=== PATIENT | female | born 1985 | race Caucasian/White ===

== ENCOUNTER → 2017-07-23 | Outpatient (CLI) | payer MEDICAID, SELFPAY | LOC: M RAD 14:26 | DX: Z36.2 Encounter for other antenatal screening follow-up (principal) | CPT/HCPCS: 76820 ==

== ENCOUNTER → 2017-08-04 | Outpatient (REF) | payer MEDICAID, SELFPAY | LOC: M LAB REF 17:06 | DX: Z34.83 Encounter for supervision of other normal pregnancy, third trimester (principal) | CPT/HCPCS: 87081 ==

== ENCOUNTER 2017-08-08 11:48 | Outpatient (CLI) | payer SELFPAY | END 2017-08-08 12:51 | disposition home or self-care (01) | LOC: M LDO 11:48 | DX: O47.03 False labor before 37 completed weeks of gestation, third trimester (principal); Z3A.37 37 weeks gestation of pregnancy | CPT/HCPCS: 59025 ==

== ENCOUNTER 2017-08-31 14:54 | Inpatient (IN) | payer MEDICAID, SELFPAY ==
[2017-08-31] MEDS: LACTATED RINGER'S 1000 ML IV (17:22)
[2017-08-31] MEDS: LR 1,000 ML IV (18:10)
[2017-08-31 18:17] LABS: HEMATOCRIT 32.4 % (36.0-47.0); HEMOGLOBIN 10.9 g/dl (12.0-16.0); MEAN CORPUSCULAR HEMOGLOBIN 27.1 pg (27.0-33.0); MEAN CORPUSCULAR HGB CONC 33.6 g/dl (32.0-36.5); MEAN CORPUSCULAR VOLUME 80.6 fl (80.0-96.0); PLATELET COUNT, AUTOMATED 284 10^3/uL (150-450); RED BLOOD COUNT 4.02 10^6/uL (4.00-5.40); RED CELL DISTRIBUTION WIDTH 13.3 % (11.5-14.5); WHITE BLOOD COUNT 19.1 10^3/uL (4.0-10.0)
[2017-08-31] MEDS: miSOPROStol 50 MCG 1/2 TAB (S0191) SL (18:30)
[2017-08-31 21:02] LABS: HBSAG L&D NEGATIVE (NEGATIVE)
[2017-09-01] MEDS: miSOPROStol 50 MCG 1/2 TAB (S0191) PV (00:50)
[2017-09-01] MEDS: LR 1,000 ML IV ×3 (01:22→11:36)
[2017-09-01] MEDS ORDERED: FENTANYL 2MCG/ML ROPIVACAINE 0.2% IN 0.9% NACL 200ML IVBAG As Ordered (02:50)
[2017-09-01] MEDS ORDERED: EPIDURAL COMMENT XX (03:25)
[2017-09-01] MEDS ORDERED: NALOXONE INJ 0.4 MG/1 ML VIAL (J2310) IV (03:25)
[2017-09-01] MEDS ORDERED: EPIDURAL/PCA KEYS XX (03:25)
[2017-09-01] MEDS: FENTANYL/ROPIVACAINE/NACL BAG 200 ML EPIDURAL (03:25)
[2017-09-01] MEDS ORDERED: REFRIGERATOR IV KEYS XX (03:25)
[2017-09-01] MEDS ORDERED: diphenhydrAMINE INJ 50MG/ML VIAL (J1200) IV (03:25)
[2017-09-01] MEDS ORDERED: ONDANSETRON 4MG/2ML VIAL (J2405) As Ordered (03:40)
[2017-09-01] MEDS ORDERED: ePHEDrine SULFATE 25 MG/5 ML(5MG/ML) SYRINGE As Ordered (03:41)
[2017-09-01] MEDS ORDERED: OXYTOCIN 30 UNITS IN 0.9% NaCl 500ML IV BAG (J2590) As Ordered (07:04)
[2017-09-01] MEDS: ePHEDrine SULFATE 25 MG/5 ML(5MG/ML) SYRINGE IV ×2 (07:23→11:36)
[2017-09-01] MEDS: ONDANSETRON 4MG/2ML VIAL (J2405) IV ×2 (07:23→13:17)
[2017-09-01] MEDS: OXYTOCIN DRIP 30 UNITS in APPROPRIATE DILUENT 1 EA IV (13:03)
[2017-09-01 19:44] LABS: CORD GAS HCO3 V 18.4 MEQ/L; CORD GAS O2 SAT V 92.5 %; CORD GAS PCO2 V 33.9 mmHg; CORD GAS PH V 7.352 UNITS; CORD GAS PO2 V 49.9 mmHg; CORD GAS SBC V 19.5 MEQ/L; CORD GAS TCO2 V 19.4 MEQ/L
[2017-09-01] MEDS: miSOPROStol 200 MCG TAB (S0191) PR (20:15)
[2017-09-01] MEDS ORDERED: ANUSOL HC CREAM 30GM TOP (20:15)
[2017-09-01] MEDS ORDERED: RHOGAM 300 MCG (1500 IU) INJ (J2790) IM (20:15)
[2017-09-01] MEDS ORDERED: MEASLES,MUMPS,RUBELLA VACCINE INJ (MMR-II) (90707) SC (20:15)
[2017-09-01] MEDS ORDERED: MOM 30ML SUSPENSION UDC PO (20:15)
[2017-09-01] MEDS: METHYLERGONOVINE MALEATE 0.2 MG/ML VIAL (J2210) IM (20:30)
[2017-09-01] MEDS: IBUPROFEN 800 MG TAB PO (22:00)
[2017-09-01] MEDS: FERROUS SULFATE 325MG TAB PO (22:38)
[2017-09-01] MEDS: ACETAMINOPHEN 500 MG TAB PO (22:39)
[2017-09-02] MEDS: METHYLERGONOVINE MALEATE 0.2 MG TAB PO ×4 (00:21→17:44)
[2017-09-02] MEDS: IBUPROFEN 800 MG TAB PO (05:34)
[2017-09-02] MEDS: ACETAMINOPHEN 500 MG TAB PO (05:36)
[2017-09-02 07:28] LABS: HEMATOCRIT 21.4 % (36.0-47.0); MEAN CORPUSCULAR HEMOGLOBIN 26.8 pg (27.0-33.0); MEAN CORPUSCULAR HGB CONC 32.7 g/dl (32.0-36.5); PLATELET COUNT, AUTOMATED 212 10^3/uL (150-450); RED BLOOD COUNT 2.61 10^6/uL (4.00-5.40); RED CELL DISTRIBUTION WIDTH 13.4 % (11.5-14.5); WHITE BLOOD COUNT 21.2 10^3/uL (4.0-10.0)
[2017-09-02] MEDS: PERCOCET 5MG/325MG TAB PO ×3 (07:33→19:43)
[2017-09-02] MEDS: FERROUS SULFATE 325MG TAB PO ×2 (07:33→21:14)
[2017-09-02] MEDS ORDERED: PRENATAL VITAMINS CHEWABLE TABLET PO (09:00)
[2017-09-02] MEDS: PRENATAL VITAMINS CHEWABLE TABLET PO ×2 (11:30→12:00)
[2017-09-02] MEDS ORDERED: miSOPROStol 200 MCG TAB (S0191) As Ordered (12:00)
[2017-09-02] MEDS: DOCUSATE SODIUM 100 MG CAP PO (21:14)
[2017-09-03] MEDS ORDERED: METHYLERGONOVINE MALEATE 0.2 MG TAB PO
[2017-09-03] MEDS: PERCOCET 5MG/325MG TAB PO ×2 (01:55→07:59)
[2017-09-03] MEDS: DIBUCAINE 1% OINTMENT 30GM TOP (07:56)
[2017-09-03] MEDS: IBUPROFEN 800 MG TAB PO (07:58)
[2017-09-03] MEDS: FERROUS SULFATE 325MG TAB PO (07:59)
[2017-09-03] MEDS ORDERED: METHYLERGONOVINE MALEATE 0.2 MG/ML VIAL (J2210) IM (08:15)
== END 2017-09-03 10:28 | disposition home or self-care (01) | DRG 560 ==
LOC: M LDO 14:54 → M OBS 09-01 22:03 → M LDI 15:08
PROVIDERS: Obstetrics & Gynecology
PROC: 3E0DXGC Introduction of Other Therapeutic Substance into Mouth and Pharynx, External Approach (ICD-10-PCS; 2017-08-31)
PROC: 10E0XZZ Delivery of Products of Conception, External Approach (ICD-10-PCS; principal; 2017-09-01)
PROC: 10907ZC Drainage of Amniotic Fluid, Therapeutic from Products of Conception, Via Natural or Artificial Opening (ICD-10-PCS; 2017-09-01)
PROC: 0W8NXZZ Division of Female Perineum, External Approach (ICD-10-PCS; 2017-09-01)
PROC: 0WQNXZZ Repair Female Perineum, External Approach (ICD-10-PCS; 2017-09-01)
DX: O48.0 Post-term pregnancy (principal); O69.82X0 Labor and delivery complicated by other cord entanglement, without compression, not applicable or unspecified; Z37.0 Single live birth; Z3A.40 40 weeks gestation of pregnancy; O43.123 Velamentous insertion of umbilical cord, third trimester

== ENCOUNTER → 2019-08-26 | Outpatient (CLI) | payer MEDICAID, OTHER ==
[~2019-08-26] MED LIST: FERR325T3 PO; IBUP-1114 PO; MAPA500T2 PO; OXYC1TAB23 PO; PRENTAB9 PO; TUMS500C PO
[2019-08-26 12:12] LABS: BASO % 0.2 % (0.0-1.0); EOS # 0.1 10^3/uL (0.0-0.5); EOS % 1.1 % (0.0-3.0); HEMATOCRIT 34.1 % (36.0-47.0); HEMOGLOBIN 11.3 g/dl (12.0-15.5); LYMPH # 1.4 10^3/uL (1.5-5.0); LYMPH % 12.7 % (24.0-44.0); MEAN CORPUSCULAR HEMOGLOBIN 28.7 pg (27.0-33.0); MEAN CORPUSCULAR HGB CONC 33.1 g/dl (32.0-36.5); MEAN CORPUSCULAR VOLUME 86.5 fl (80.0-96.0); MONO # 0.4 10^3/uL (0.0-0.8); MONO % 3.9 % (0.0-5.0); NEUTROPHILS % 81.1 % (36.0-66.0); PLATELET COUNT, AUTOMATED 249 10^3/uL (150-450); RED BLOOD COUNT 3.94 10^6/uL (4.00-5.40); WHITE BLOOD COUNT 11.1 10^3/uL (4.0-10.0)
[2019-08-26 12:23] LABS: GLUCOSE CHALLENGE TEST 1 HOUR 114 MG/DL (LESS THAN 140); THYROID STIMULATING HORMONE 0.964 uIU/ML (0.358-3.740)
[2019-08-26 13:32] LABS: HEMOGLOBIN A1c 5.6 %
[2019-08-26 14:12] LABS: CHLAMYDIA DNA AMPLIFICATION NEGATIVE (NEGATIVE); GC DNA AMPLIFICATION NEGATIVE (NEGATIVE)
[2019-08-27 11:34] LABS: RUBELLA IgG QUALITATIVE IMMUNE (IMMUNE)
[2019-08-27 12:02] LABS: HEPATITIS C VIRUS ABY INDEX < 0.0 INDEX (<0.8)
[2019-08-27 12:03] LABS: HIV 1&2 SCREEN CENTAUR NEGATIVE (NEGATIVE)
== END ==
LOC: M PLALAB 08:18
PROVIDERS: ATTEND Advanced Practice Midwife
DX: O30.049 Twin pregnancy, dichorionic/diamniotic, unspecified trimester (principal); Z3A.00 Weeks of gestation of pregnancy not specified

== ENCOUNTER → 2019-09-21 | Outpatient (CLI) | payer OTHER ==
--- NOTE | 2019-09-21 12:30 | REP ---
OBSTETRIC SONOGRAPHY: MULTIPLE GESTATION. HISTORY: Twin . Dichorionic diamniotic, second trimester study. Findings: There is a thin membrane between the two fetuses. Dichorionic diamniotic twin gestation. A placenta is seen posteriorly with complete placenta previa. With fetus B gestational sac there appears to be placental tissue anteriorly and posteriorly. Bilobed placenta versus placenta with succenturiate lobe. Closed cervical length is measured transvaginally at 4.3 cm. Twin A is transverse in lie with head to the maternal left. Twin B is transverse in lie head to the maternal right. Amniotic fluid is subjectively normal around both twins. No extrauterine abnormalities observed. In fetus A there is no evidence of abnormality. facial profile is observed but nose and lips as well as right ventricular cardiac outflow tract view and abdominal wall cord insertion are less than optimally seen due to position. The following additional anatomic structures are identified in fetus A and are felt to be unremarkable: cranium, choroid plexus, cavum, cerebellum and posterior fossa, four-chamber heart with left ventricular outflow tract view, diaphragm, left-sided stomach, three-vessel cord, kidneys and bladder, spine, upper and lower extremities. Biometry chart fetus A: BPD 4.4 cm = 19 weeks 3 days Head circumference 15.1 cm = 18 weeks 4 days Abdominal circumference 13.4 cm = 18 weeks 6 days Femur length 2.8 cm = 18 weeks 3 days Humeral length 2.7 cm = 18 weeks 6 days Cerebellar diameter 1.7 cm = 17 weeks 3 days HC/AC ratio normal 1.18. Cephalic index normal 0.80. Estimated weight 252 grams, 0 pounds 8 ounces, 47th percentile for 18 weeks 5 days. In fetus B, there is no abnormality. The following anatomic structures are less than optimally seen due to position: Nose and lips, left and right ventricular cardiac outflow tract views, cord insertion, kidneys. The following anatomic structures are identified in fetus B and are felt to be unremarkable: cranium, choroid plexus, cavum, cerebellum and posterior fossa, four-chamber heart, diaphragm, left-sided stomach, three-vessel cord, urinary bladder, spine, upper and lower extremities. Biometry chart fetus B: BPD 4.2 cm = 18 weeks 6 days Head circumference 15.1 cm = 18 weeks 1 day Abdominal circumference 13.0 cm = 18 weeks 4 days Femur length 2.8 cm = 18 weeks 4 days Humeral length 2.8 cm = 18 weeks 6 days Cerebellar diameter 1.7 cm = 17 weeks 3 days HC/AC ratio normal 1.16. Cephalic index normal 0.80. Estimated weight 245 grams, 0 pounds 8 ounces, 42nd percentile for 18 weeks 5 days. IMPRESSION: Viable twin intrauterine gestation at 18 weeks 5 days by today's composite criteria. TYLOR by today's sonography February 17, 2020. There is evidence of complete placenta previa on transabdominal and transvaginal images.
== END ==
LOC: M WHC 08:50
PROVIDERS: ATTEND Advanced Practice Midwife
DX: O30.042 Twin pregnancy, dichorionic/diamniotic, second trimester (principal); Z3A.18 18 weeks gestation of pregnancy

== ENCOUNTER → 2019-10-22 | Outpatient (CLI) | payer OTHER ==
--- NOTE | 2019-10-23 09:58 | REP ---
Obstetric sonography: Multiple gestation. History: Follow-up anatomy. Known twins. Comparison study: September 21, 2019. Findings: Scanning through the gravid uterus demonstrates a diamniotic dichorionic twin gestation. Placenta for fetus A is posterior low-lying grade 1 at the inferior edge of the placenta 1.0 cm from the internal cervical os visualized transvaginally. The placenta for fetus B is again noted to be anterior and posterior with its placental cord insertion difficult to identify, question bilobed or succenturiate placenta. Closed cervical length measured transvaginally is 3.8 cm. There has been concordant and appropriate growth. Twin A is in variable position along maternal right. Twin B is variable in position along maternal left. Amniotic fluid is subjectively normal. No abnormalities observed in fetus A. The following anatomic structures are identified in fetus A and felt to be unremarkable: cranium, face and profile, right ventricular outflow tract view, diaphragm, left-sided stomach, abdominal wall cord insertion, three-vessel cord, kidneys and bladder, spine in sagittal projection. Biometry chart fetus A BPD 5.6 cm = 23 weeks 1 day HC 20.4 cm = 22 weeks 4 days AC 17.5 cm = 22 weeks 3 days FL 4.1 cm = 23 weeks 3 days HL 3.9 cm = 23 weeks 6 days HC/AC ratio normal 1.17. Cephalic index normal 0.77. Estimated weight 536 grams, 1 pound 2 ounces, 36th percentile for 23 weeks 1 day. No abnormality is noted in fetus B. The following anatomic structures are identified in fetus B today and felt to be unremarkable: cranium, face and profile, left and right ventricular outflow tract views, diaphragm, left-sided stomach, abdominal wall cord insertion, three-vessel cord, kidneys and bladder. Biometry chart fetus B BPD 5.5 cm = 22 weeks 5 days HC 20.0 cm = 22 weeks 1 day AC 18.2 cm = 23 weeks 0 days FL 4.2 cm = 23 weeks 4 days HL 4.0 cm = 24 weeks 1 day HC/AC ratio normal 1.10. Cephalic index normal 0.77. Estimated weight 568 grams, 1 pound 4 ounces, 47th percentile for 23 weeks 1 day. Impression: Viable twin intrauterine gestation at 23 weeks 1 day by comparison sonography, TYLOR February 17, 2020. Appropriate and concordant interval growth. In conjunction with prior study, anatomic survey is felt to be complete.
== END ==
LOC: M WHC 14:05
PROVIDERS: ATTEND Advanced Practice Midwife
DX: O30.042 Twin pregnancy, dichorionic/diamniotic, second trimester (principal)

== ENCOUNTER → 2019-12-02 | Outpatient (CLI) | payer OTHER ==
--- NOTE | 2019-12-02 19:53 | REP ---
Clinical: Twin gestation. Growth evaluation Comparison: 10/22/2019 . Findings: Examination demonstrates diamniotic dichorionic twin gestation. Cervix measures 4.0 cm in length and appears closed. Concordant growth is noted. Gestational age by LMP at 28 weeks 6 days with estimated date of delivery 02/18/2020 . TWIN A: Twin A identified in cephalic presentation along the maternal left side. Placenta is noted posteriorly, low-lying (1.4 cm from the closed internal os) and grade I. motion is appreciated. Amniotic fluid volume is normal and the deepest pocket measures 5.1 cm. FHR equals 138 beats per minute. Gestational age by current measurements: 28 weeks 3 days . Estimated weight 1244 grams ( 34th percentile). Limited anatomical assessment without obvious abnormality. ------- TWIN B: Twin B identified in cephalic presentation along the maternal right side. Placenta is noted anteriorly and posteriorly suggesting bilobed or succenturiate placental and grade I without evidence for placenta previa or abruption. motion is appreciated. Amniotic fluid volume is normal and the deepest pocket measures 6.6 cm. FHR equals 134 beats per minute. Gestational age by current measurements: 28-week 6 days . Estimated weight 1353 grams ( 49th percentile). Limited anatomical assessment without obvious abnormality. Impression: 1. Advanced diamniotic dichorionic twin gestation demonstrating appropriate concordant growth. 2. Twin A placenta is low-lying approximately 1.4 cm from the closed internal os. 3. Twin B placenta has a bilobed versus succenturiate appearance and cord insertion cannot be determined.
== END ==
LOC: M WHC 07:06
PROVIDERS: ATTEND Advanced Practice Midwife
DX: O30.042 Twin pregnancy, dichorionic/diamniotic, second trimester (principal)

== ENCOUNTER → 2019-12-07 | Outpatient (CLI) | payer OTHER | LOC: M LAB 07:31 | PROVIDERS: ATTEND Advanced Practice Midwife | DX: O30.043 Twin pregnancy, dichorionic/diamniotic, third trimester (principal) ==

== ENCOUNTER → 2019-12-23 | Outpatient (CLI) | payer OTHER ==
[~2019-12-23] MED LIST changes: +LEVO25TA5 PO
--- NOTE | 2019-12-23 08:30 | REP ---
Clinical: Twin gestation. Growth evaluation Comparison: 12/02/2019 . Findings: Examination demonstrates advanced diamniotic dichorionic twin gestation. Cervix measures 3.8 cm in length and appears closed. Concordant growth is noted. Gestational age by LMP at 31 weeks 6 days with estimated date of delivery 02/18/2020 . TWIN A: Twin A identified in cephalic presentation along the maternal left side. Placenta is noted posterior and grade I without evidence for placenta previa or abruption. Placenta tip is 2 cm from the closed internal os. motion is appreciated. Amniotic fluid volume is normal and the deepest pocket measures 5.3 cm. FHR equals 136 beats per minute. Gestational age by current measurements: 31 weeks 4 days . Estimated weight 1772 grams ( 34th percentile). Limited anatomical assessment without obvious abnormality. ------- TWIN B: Twin B identified in cephalic presentation along the maternal right side. Placenta is noted anterior / posterior and grade I without evidence for placenta previa or abruption. Bilobed or succenturiate placenta for twin B cannot be excluded. motion is appreciated. Amniotic fluid volume is normal and the deepest pocket measures 5.7 cm. FHR equals 132 beats per minute. Gestational age by current measurements: 32 weeks 0 days . Estimated weight 2023 grams ( 59th percentile). Limited anatomical assessment without obvious abnormality. Impression: 1. Diamniotic dichorionic twin gestation demonstrating appropriate concordant growth. No gross abnormalities are identified. 2. Possible bilobed versus succenturiate placenta for twin B.
== END ==
LOC: M WHC 06:47
PROVIDERS: ATTEND Advanced Practice Midwife
DX: O30.043 Twin pregnancy, dichorionic/diamniotic, third trimester (principal); Z3A.31 31 weeks gestation of pregnancy

== ENCOUNTER 2019-12-24 21:49 | Outpatient (CLI) | payer OTHER ==
[~2019-12-24] VITALS: Ht 170.2 cm; Wt 123.6 kg
[~2019-12-24 21:49] MED LIST changes: -LEVO25TA5 PO
[2019-12-24 22:35] VITALS: BP 143/84
[2019-12-24 22:37] VITALS: BP 130/67
--- NOTE | 2019-12-24 23:28 | IPNPDOC ---
Text Note Date of Service The patient was seen on 12/24/19. NOTE Outpatient 34yo TYLOR 02/18/2020. Presents @ 32 wks with reports of pink/red mucousy discharge today, backache and diarrhea since last night. Di/Di twin gestation; previous placenta previa that now has resolved to 2cm from os. Possible bilobed vs succenturiate placenta for "B". NAD, resting comfortably in bed VSS Mild irregular UC Q 8-10 minutes Cat I tracing x 2 Spec exam scant pink tinged mucous, cervix visually LTC SVE FT/long/OOP. Will update Dr Guzman. VS,Fishbone, I+O VS, Fishbone, I+O Vital Signs Date Time Temp Pulse Resp B/P (MAP) Pulse Ox O2 Delivery O2 Flow Rate FiO2 12/24/19 22:38 96.6 18 Luann Roy CNM Dec 24, 2019 23:28
[2019-12-24] MEDS ORDERED: LR 1,000 ML IV ONE (23:30)
[2019-12-24 23:54] LABS: HEMATOCRIT 28.3 % (36.0-47.0); HEMOGLOBIN 9.4 g/dl (12.0-15.5); MEAN CORPUSCULAR HEMOGLOBIN 26.9 pg (27.0-33.0); MEAN CORPUSCULAR HGB CONC 33.2 g/dl (32.0-36.5); MEAN CORPUSCULAR VOLUME 80.9 fl (80.0-96.0); PLATELET COUNT, AUTOMATED 200 10^3/uL (150-450); WHITE BLOOD COUNT 14.2 10^3/uL (4.0-10.0)
[2019-12-25] VITALS (18 sets, daily range): BP systolic 90–125; BP diastolic 53–74
[2019-12-25 00:37] LABS: APPEARANCE, URINE CLEAR (CLEAR); BACTERIA, URINE AUTO 2+ (NEGATIVE); BILIRUBIN, URINE AUTO NEGATIVE (NEGATIVE); BLOOD, URINE BLOOD NEGATIVE (NEGATIVE); COLOR, URINE STRAW (YELLOW); GLUCOSE, URINE (UA) AUTO NEGATIVE (NEGATIVE); KETONE, URINE AUTO NEGATIVE (NEGATIVE); LEUKOCYTE ESTERASE, URINE AUTO NEGATIVE (NEGATIVE); NITRITE, URINE AUTO NEGATIVE (NEGATIVE); PROTEIN, URINE AUTO NEGATIVE (NEGATIVE); RBC, URINE AUTO 0 /HPF (0-3); SPECIFIC GRAVITY URINE AUTO 1.003 (1.002-1.035); SQUAMOUS EPITHELIAL CELL UR AU 0 /HPF (0-6); UROBILINOGEN, URINE AUTO 0.2 mg/dL (0.0-2.0); WBC, URINE AUTO 0 /HPF (0-3)
--- NOTE | 2019-12-25 01:10 | IPNPDOC ---
Text Note Date of Service The patient was seen on 12/25/19. NOTE Outpatient Pt reports feeling UC at this time Contractions are Q 6 minutes, moderate with uterine irritability between FH reassuring x 2 SVE /3 Dr Guzman notified. Terbutaline SC and betamethasone ordered. VS,Fishbone, I+O VS, Fishbone, I+O Laboratory Tests 12/24/19 23:45 Vital Signs Date Time Temp Pulse Resp B/P (MAP) Pulse Ox O2 Delivery O2 Flow Rate FiO2 12/24/19 22:38 96.6 18 12/24/19 22:37 80 130/67 (88) Luann Roy Dec 25, 2019 01:10
[2019-12-25] MEDS ORDERED: TERBUTALINE SULFATE 1 MG/ML VIAL (J3105) SC ONE ×2 (01:15→05:00)
[2019-12-25] MEDS: BETAMETHASONE SOLUSPAN 6MG/ML 5ML VIAL (J0702 PER 3MG) IM SCH (01:54)
[2019-12-25] MEDS: CALCIUM CARBONATE 500 MG CHEW U/D PO SCH ×4 (02:25→21:40)
--- NOTE | 2019-12-25 05:39 | IPNPDOC ---
Text Note Date of Service The patient was seen on 12/25/19. NOTE Progress Contractions resumed 10-12 minutes apart. Pt was perceiving them again FH reassuring x 2 Terbutaline 0.25sc repeated VS,Fishbone, I+O VS, Fishbone, I+O Laboratory Tests 12/24/19 23:45 Vital Signs Date Time Temp Pulse Resp B/P (MAP) Pulse Ox O2 Delivery O2 Flow Rate FiO2 12/25/19 05:27 97.6 12/25/19 05:22 96 18 120/74 (89) I&O- Last 24 Hours up to 6 AM 12/25/19 06:00 Output Total 300 ml Balance -300 ml Luann Roy CNM Dec 25, 2019 05:39
--- NOTE | 2019-12-25 06:57 | IPNPDOC ---
Text Note Date of Service The patient was seen on 12/25/19. NOTE Progress Cat I tracing x 2 Uterine irritability after 2nd terbutaline dose SVE now FT/60/-3, presenting part no longer well applied. Will update Dr Guzman VSStan, I+O Stan VARGHESE, I+O Laboratory Tests 12/24/19 23:45 Vital Signs Date Time Temp Pulse Resp B/P (MAP) Pulse Ox O2 Delivery O2 Flow Rate FiO2 12/25/19 05:27 97.6 12/25/19 05:22 96 18 120/74 (89) I&O- Last 24 Hours up to 6 AM 12/25/19 06:00 Output Total 800 ml Balance -800 ml Luann Roy CNM Dec 25, 2019 06:57
[2019-12-25] MEDS ORDERED: FLUCONAZOLE 100 MG TAB PO ONE (16:30)
[2019-12-25] MEDS ORDERED: ACETAMINOPHEN 500 MG TAB PO PRN (18:30)
[2019-12-25] MEDS ORDERED: MOM 30ML SUSPENSION UDC PO SCH (21:00)
[2019-12-25] MEDS ORDERED: DOCUSATE SODIUM 100 MG CAP PO SCH (21:00)
[2019-12-26] MEDS: BETAMETHASONE SOLUSPAN 6MG/ML 5ML VIAL (J0702 PER 3MG) IM SCH (00:06)
[2019-12-26] MEDS ORDERED: LEVOTHYROXINE 25MCG TABLET (0.025MG) PO SCH (06:00)
[2019-12-26 06:43] VITALS: BP 111/55
[2019-12-26 07:23] VITALS: BP 133/67
--- NOTE | 2019-12-29 10:11 | DSES ---
DATE OF ADMISSION: 12/24/2019 DATE OF DISCHARGE: 12/26/2019 A 34-year-old at 32 weeks gestation with dichorionic-diamniotic (di-di) twins, presents with a small amount of vaginal bleeding and abdominal cramping for the last several hours. She denies recent intercourse or active physical activity. She denies loss of fluid. HOSPITAL COURSE: The patient evaluated in triage on 12/24/2019 in the evening. She was noted to have contractions and scant amount of vaginal bleeding. She was given intravenous (IV) fluids. She was observed over time. She received a total of two doses of terbutaline to help ease contractions. She was noted to make a minor amount of cervical change from closed to 1 cm. The decision was made to administer a course of betamethasone for 1 maturity. She completed that course. She was observed overnight the next night, and contractions ceased. testing was completely reassuring. She was deemed stable for discharge on 12/26/2019. ADMISSION DIAGNOSIS: , twins, 32 weeks, contractions. DISCHARGE DIAGNOSIS: , twins, 32 weeks, contractions. DISPOSITION: The patient will followup with Dr. Guzman in 2 days. Instructions were reviewed.
== END 2019-12-26 08:15 | disposition home or self-care (01) ==
LOC: M LDO 21:49
PROVIDERS: ATTEND Advanced Practice Midwife
DX: O60.14X1 Preterm labor third trimester with preterm delivery third trimester, fetus 1 (principal); O60.14X2 Preterm labor third trimester with preterm delivery third trimester, fetus 2; O30.043 Twin pregnancy, dichorionic/diamniotic, third trimester; O26.853 Spotting complicating pregnancy, third trimester; Z3A.32 32 weeks gestation of pregnancy
CPT/HCPCS: 59025; 81001; 85027; 86780; 86850; 86900; 86901; J0702; J3105

== ENCOUNTER → 2020-01-11 | Outpatient (CLI) | payer OTHER ==
[~2020-01-11] MED LIST changes: +LEVO25TA5 PO
--- NOTE | 2020-01-11 11:46 | REP ---
REASON: Twin gestation. Multiple ultrasonographic images of a twin gestation show a diamniotic/dichorionic twin gestation with the placenta for twin A being posterior and the placenta for twin B being anteroposterior and obscuring the cord insertion site. Succenturiate placenta cannot be ruled out. There is no evidence of a low lying placenta. The cervix measures 3.2 cm in length and is closed. TWIN A: Twin A is in the cephalic presentation maternal left position. The subjective fluid volume is within normal limits. The heart rate of twin A is 133 beats per minute. TWIN A BPD 8.6 cm = 34 weeks 5 days HC 31.1 cm = 34 weeks 6 days AC 30.6 cm = 34 weeks 4 days FL 6.8 cm = 34 weeks 5 days The estimated weight is 2473 grams, which is at the 46th percentile for a 14-ceqk-1-day gestational age. TWIN B: BPD 8.5 cm = 34 weeks 3 days HC 30.9 cm = 34 weeks 4 days AC 30.6 cm = 34 weeks 4 days FL 6.8 cm = 35 weeks 0 days Estimated weight is 2476 grams which is at the 47th percentile for a 36-tbat-8-day gestational age. The heart rate of twin B is 129 beats per minute. The subjective amniotic fluid volume is within normal limits. Evaluation of the maternal adnexal spaces shows no abnormalities. IMPRESSION: Twin gestation as described above. The estimated gestational age using the largest twin's biometric figures was not performed by the technologist.
== END ==
LOC: M WHC 06:44
PROVIDERS: ATTEND Advanced Practice Midwife
DX: O30.043 Twin pregnancy, dichorionic/diamniotic, third trimester (principal); Z3A.34 34 weeks gestation of pregnancy

== ENCOUNTER → 2020-01-11 | Outpatient (REF) | payer OTHER | LOC: M SFHCWAGY 10:20 | PROVIDERS: ATTEND Advanced Practice Midwife | DX: O30.049 Twin pregnancy, dichorionic/diamniotic, unspecified trimester (principal) ==

== ENCOUNTER → 2020-01-26 | Outpatient (CLI) | payer OTHER | LOC: M LABSMTC 12:21 | PROVIDERS: ATTEND Anesthesiology | DX: Z01.818 Encounter for other preprocedural examination (principal); Z20.828 Contact with and (suspected) exposure to other viral communicable diseases; Z11.59 Encounter for screening for other viral diseases ==

== ENCOUNTER 2020-01-27 07:10 | Inpatient (IN) | payer OTHER ==
[~2020-01-27] VITALS: Ht 170.2 cm; Wt 127.3 kg
[2020-01-27] MEDS ORDERED: ceFAZolin SOD 2 GM in IV 1 EA IV ONE (07:30)
[2020-01-27] MEDS ORDERED: LR 1,000 ML IV ONE (07:30)
[2020-01-27] MEDS ORDERED: BICITRA 30ML SOLN UDC PO ONE (07:30)
[2020-01-27] MEDS ORDERED: LR 1,000 ML IV SCH ×3 (07:30→11:15)
[2020-01-27] MEDS ORDERED: MAPA500T2 PO (07:52)
[2020-01-27] MEDS ORDERED: TUMS500C PO (07:52)
[2020-01-27 07:55] VITALS: BP 119/69
[2020-01-27 08:18] LABS: HEMATOCRIT 30.2 % (36.0-47.0); HEMOGLOBIN 9.6 g/dl (12.0-15.5); MEAN CORPUSCULAR HGB CONC 31.8 g/dl (32.0-36.5); MEAN CORPUSCULAR VOLUME 78.6 fl (80.0-96.0); PLATELET COUNT, AUTOMATED 206 10^3/uL (150-450); RED BLOOD COUNT 3.84 10^6/uL (4.00-5.40); WHITE BLOOD COUNT 12.8 10^3/uL (4.0-10.0)
[2020-01-27 08:37] VITALS: BP 130/71
[2020-01-27] MEDS ORDERED: NALOXONE INJ 0.4MG/1ML VIAL (J2310 PER 1MG) IV PRN ×2 (09:54)
[2020-01-27] MEDS ORDERED: METOCLOPRAMIDE INJ 10MG/2ML VIAL (J2765 PER 1) IV PRN ×2 (09:54→11:15)
[2020-01-27] MEDS ORDERED: diphenhydrAMINE 50MG/ML VIAL (J1200) IV PRN (09:54)
[2020-01-27] MEDS ORDERED: NALBUPHINE HCL 10 MG/ML AMP (J2300) IV PRN (09:54)
[2020-01-27] MEDS ORDERED: ONDANSETRON 4MG/2ML VIAL IV PRN ×3 (09:54→11:15)
[2020-01-27] MEDS ORDERED: ONDANSETRON 4MG/2ML VIAL As Ordered ONE ×2 (09:59→11:13)
[2020-01-27] MEDS ORDERED: FAMOTIDINE/NS 20 MG/50 ML BAG (S0028) As Ordered ONE (09:59)
[2020-01-27] MEDS ORDERED: MORPHINE PRES-FREE INJ 10 MG/10 ML VIAL (J2274) As Ordered ONE (09:59)
[2020-01-27] MEDS ORDERED: OXYTOCIN INJ 10 UNITS/ML VIAL (J2590) As Ordered ONE (09:59)
[2020-01-27] MEDS ORDERED: METOCLOPRAMIDE INJ 10MG/2ML VIAL (J2765 PER 1) As Ordered ONE (10:22)
[2020-01-27] MEDS ORDERED: KETOROLAC 60MG 2ML VIAL As Ordered ONE (10:32)
[2020-01-27] MEDS ORDERED: OXYTOCIN DRIP 30 UNITS in IV 1 EA IV SCH (10:57)
[2020-01-27] MEDS ORDERED: PERCOCET 5MG/325MG TAB PO PRN ×3 (11:00→11:15)
[2020-01-27] MEDS ORDERED: MEASLES,MUMPS,RUBELLA VACCINE INJ (MMR-II) (90707) SC SCH (11:00)
[2020-01-27] MEDS ORDERED: ONDANSETRON 4 MG TAB PO PRN (11:00)
[2020-01-27] MEDS ORDERED: ACETAMINOPHEN 500 MG TAB PO PRN (11:00)
[2020-01-27] MEDS ORDERED: RHOGAM 300 MCG (1500 IU) INJ (J2790) IM SCH (11:00)
[2020-01-27] MEDS ORDERED: OXYTOCIN 30 UNITS IN 0.9% NaCl 500ML IV BAG (J2590) As Ordered ONE (11:13)
[2020-01-27] MEDS ORDERED: fentaNYL 100 MCG/2 ML INJECTION (J3010) IV PRN (11:15)
[2020-01-27] MEDS ORDERED: MEPERIDINE INJ 25 MG/ML VIAL (J2175) IV PRN (11:15)
[2020-01-27 11:45] VITALS: BP 102/55
[2020-01-27] MEDS ORDERED: KETOROLAC 30 MG/ML 1ML VIAL IV SCH (17:00)
[2020-01-27] MEDS ORDERED: DOCUSATE SODIUM 100 MG CAP PO SCH (21:00)
[2020-01-28] MEDS ORDERED: PRENATAL VITAMINS CHEWABLE TABLET PO SCH (09:00)
[2020-01-28] MEDS ORDERED: IBUPROFEN 800 MG TAB PO SCH (13:00)
== END 2020-01-29 13:50 | disposition home or self-care (01) | DRG 540 ==
LOC: M LDI 07:10
PROVIDERS: ADMIT Obstetrics & Gynecology; ATTEND Obstetrics & Gynecology
PROC: 10D00Z1 Extraction of Products of Conception, Low, Open Approach (ICD-10-PCS; principal; 2020-01-27 09:45)
DX: O40.3XX0 Polyhydramnios, third trimester, not applicable or unspecified (principal); O30.043 Twin pregnancy, dichorionic/diamniotic, third trimester; Z37.2 Twins, both liveborn; Z3A.36 36 weeks gestation of pregnancy; O32.1XX0 Maternal care for breech presentation, not applicable or unspecified

== ENCOUNTER → 2020-06-03 | Outpatient (CLI) | payer OTHER | LOC: M LABSMTC 09:21 | PROVIDERS: ATTEND Anesthesiology | DX: Z01.812 Encounter for preprocedural laboratory examination (principal); Z20.828 Contact with and (suspected) exposure to other viral communicable diseases ==

== ENCOUNTER 2020-06-06 06:02 | Day surgery (SDC) | payer OTHER ==
[~2020-06-06] VITALS: Ht 170.2 cm; Wt 102.7 kg
[2020-06-06] MEDS ORDERED: LR 1,000 ML IV ONE (07:00)
[2020-06-06] MEDS ORDERED: ceFAZolin SOD 2 GM in IV 1 EA IV ONE (07:00)
[2020-06-06] MEDS ORDERED: BUPIVACAINE HCL 0.25% 10ML VIAL As Ordered ONE (07:12)
[2020-06-06] MEDS ORDERED: BUPIVACAINE LIPOSOME/PF 1.3% 20ML VIAL (13.3MG/ML)(EXPAREL)(C9290 PER1MG) As Ordered ONE (07:12)
[2020-06-06] MEDS ORDERED: SCOPOLAMINE 1MG TRANSDERMAL PATCH TOP ONE (07:30)
[2020-06-06] MEDS ORDERED: LIDOCAINE 2% 100MG/5ML SDV (FOR ANES.) As Ordered ONE (07:44)
[2020-06-06] MEDS ORDERED: propofoL 200 MG/20 ML VIAL As Ordered ONE (07:44)
[2020-06-06] MEDS ORDERED: ONDANSETRON 4MG/2ML VIAL As Ordered ONE (07:44)
[2020-06-06] MEDS ORDERED: ROCURONIUM BROMIDE 50 MG/5 ML VIAL As Ordered ONE (07:44)
[2020-06-06] MEDS ORDERED: dexameTHASONE 4 MG/ML 1ML VIAL (J1100 PER 1MG) As Ordered ONE (07:44)
[2020-06-06] MEDS ORDERED: KETOROLAC 60MG 2ML VIAL As Ordered ONE (07:44)
[2020-06-06] MEDS ORDERED: MIDAZOLAM INJ 2MG/2ML VIAL (J2250 PER 1MG) As Ordered ONE (07:44)
[2020-06-06] MEDS ORDERED: fentaNYL 250 MCG/5 ML INJECTION (J3010) As Ordered ONE (07:44)
[2020-06-06] MEDS ORDERED: ACETAMINOPHEN 1000MG 100ML IV BTL (OFIRMEV) (J0131 PER 10MG) As Ordered ONE (07:46)
[2020-06-06] MEDS ORDERED: SUGAMMADEX SODIUM 500 MG/5 ML VIAL (BRIDION) As Ordered ONE (07:59)
[2020-06-06] MEDS ORDERED: METOCLOPRAMIDE INJ 10MG/2ML VIAL (J2765 PER 1) As Ordered ONE (09:07)
[2020-06-06] MEDS ORDERED: ONDANSETRON 4MG/2ML VIAL IV PRN (09:15)
[2020-06-06] MEDS ORDERED: LR 1,000 ML IV SCH ×2 (09:15)
[2020-06-06] MEDS ORDERED: NORCO, ANEXSIA 5/325MG TABLET (HYDROcodone/ACETAMINOPHEN) PO PRN (09:15)
[2020-06-06] MEDS ORDERED: HYDROMORPHONE HCL 0.5 MG/ 0.5 ML SYRINGE (J1170 PER 1) IV PRN (09:15)
[2020-06-06] MEDS ORDERED: oxyCODONE 5MG TAB PO PRN (09:15)
[2020-06-06] MEDS ORDERED: METOCLOPRAMIDE INJ 10MG/2ML VIAL (J2765 PER 1) IV PRN (09:15)
[2020-06-06] MEDS ORDERED: fentaNYL 100 MCG/2 ML INJECTION (J3010) IV PRN (09:15)
[2020-06-06 11:08] VITALS: BP 112/55
== END 2020-06-06 11:08 | disposition home or self-care (01) ==
LOC: M SDC 06:02
PROVIDERS: ATTEND Surgery
DX: K42.9 Umbilical hernia without obstruction or gangrene (principal); F43.10 Post-traumatic stress disorder, unspecified; D64.9 Anemia, unspecified
CPT/HCPCS: 49585; 81025; 88302; C1781; C9290; J0131; J0690; J1100; J1885; J2250; J2405; J2765; J3010